=== PATIENT | female | born 1980 | race Asian ===

== ENCOUNTER 2018-10-23 13:57 | Emergency (ER) | payer BC ==
[~2018-10-23] VITALS: Ht 157.5 cm; Wt 59.4 kg
[2018-10-23 14:13] VITALS: Ht 157.5 cm; Wt 59.4 kg
[2018-10-23 15:48] LABS: BASOPHIL % 1.2 % (0-2); PLATELET COUNT 316 x10^3mcL (130-400); RED CELL DISTRIBUTION WIDTH 13.7 % (11.5-14.5)
[2018-10-23 17:08] VITALS: BP 107/67
== END 2018-10-23 17:20 | disposition home or self-care (01) ==
LOC: ED 13:57
PROVIDERS: Emergency Medicine
DX: O20.9 Hemorrhage in early pregnancy, unspecified (principal); Z3A.08 8 weeks gestation of pregnancy
CPT/HCPCS: 36415

== ENCOUNTER 2018-10-25 07:24 | Emergency (ER) | payer BC ==
[~2018-10-25] VITALS: Ht 157.5 cm; Wt 59.9 kg
[2018-10-25 07:34] VITALS: Ht 157.5 cm; Wt 59.9 kg
[2018-10-25 08:09] LABS: BASOPHIL % 0.6 % (0-2); PLATELET COUNT 310 x10^3mcL (130-400); RED CELL DISTRIBUTION WIDTH 13.5 % (11.5-14.5)
[2018-10-25 10:44] VITALS: BP 128/62
== END 2018-10-25 10:44 | disposition home or self-care (01) ==
LOC: ED 07:24
PROVIDERS: Emergency Medicine
DX: O20.8 Other hemorrhage in early pregnancy (principal); Z3A.01 Less than 8 weeks gestation of pregnancy
CPT/HCPCS: 36415